=== PATIENT | female | born 1965 | race Caucasian/White ===

== ENCOUNTER → 2016-10-17 | Outpatient (CLI) | payer BC ==
--- NOTE | 2016-10-17 15:08 | DX ---
DEXA Bone Mineral Densitometry Clinical Indications: Perimenopausal, baseline, screening for osteoporosis Comparison: Technique: Bone Mineral Densitometry (BMD) by Dual Energy X-Ray Absorptiometry (DEXA) was performed utilizing the [employer] scanner. The lumbar spine was evaluated in the AP projection. The bilat eral hips and forearm were evaluated in the AP projection. Vertebral fracture assessment was also pe rformed. AP Lumbar Spine: The L1, L2, L3 and L4 vertebral bodies were evaluated. BMD: 1.113 gm/cm2 T-score: -0.7 SD Z-score: 0.1 SD AP Left Hip: Total BMD: 0.866 gm/cm2 T-score: -1.1 SD Z-score: -0.5 SD AP Right Hip: Total BMD: 0.849 gm/cm2 T-score: -1.3 SD Z-score: -0.6 SD AP Left Forearm, 10/04: BMD: 0.767 gm/cm2 T-score: -1.2 SD Z-score: -1.1 SD Vertebral Fracture Assessment: No significant fracture deformity. No prevertebral aortic calcificati on, significant marginal bone spurring, facet arthrosis, or intrinsic vertebral body sclerosis that would effect the accuracy of the lumbar spine BMD measurement. Conclusion: Considering the lowest measured site, the patient has low bone density. The ten year FRAX risk for any major osteoporotic fracture is 4.1% and for a hip fracture is 0.3%. Any bone loss in this patient is probably related to aging or estrogen deficiency. To prevent osteoporosis and to promote the patient's bone density, the following recommendations shou ld be considered: 1. Pursue a regular regimen of weightbearing and muscle strengthening exercises in order to reduce t he risk of falls and fractures (as tolerated by the patient's general medical condition). 2. Ensure that daily dietary calcium uptake is maximized. 3. Consider checking the serum vitamin D level. Ensure that intake of vitamin D is 600 IU per day (fo r all ages through 70) 4. Consider follow-up DEXA scan at the time of menopause to assess the rate of bone loss in this pat ient.
== END ==
LOC: BRMIMAGING 13:23
PROVIDERS: ATTEND Family Medicine
DX: Z13.820 Encounter for screening for osteoporosis (principal); M85.80 Other specified disorders of bone density and structure, unspecified site; N95.1 Menopausal and female climacteric states

== ENCOUNTER → 2017-07-28 | Outpatient (CLI) | payer BC | LOC: FIMAGING 19:59 | PROVIDERS: ATTEND Family Medicine | DX: R22.2 Localized swelling, mass and lump, trunk (principal); M51.34 Other intervertebral disc degeneration, thoracic region ==

== ENCOUNTER → 2018-03-19 | Outpatient (CLI) | payer BC | LOC: FIMAGING 15:16 | PROVIDERS: ATTEND Family Medicine | DX: Z12.31 Encounter for screening mammogram for malignant neoplasm of breast (principal) ==

== ENCOUNTER → 2018-03-30 | Outpatient (CLI) | payer BC | LOC: CIMAGING 10:25 | PROVIDERS: ATTEND Family Medicine | DX: N83.201 Unspecified ovarian cyst, right side (principal); N83.202 Unspecified ovarian cyst, left side | CPT/HCPCS: 76770-PO ==

== ENCOUNTER 2018-05-20 | Emergency (ER) | payer BC | END 2018-05-20 17:54 | disposition home or self-care (01) ==

== ENCOUNTER → 2018-11-19 | Outpatient (CLI) | payer BC | LOC: CIMAGING 12:34 | PROVIDERS: ATTEND Family Medicine | DX: N83.202 Unspecified ovarian cyst, left side (principal) | CPT/HCPCS: 76856-PO ==

== ENCOUNTER 2019-02-18 02:12 | Emergency (ER) | payer BC ==
--- NOTE | 2019-02-18 02:30 | EDPHY ---
H & P Stated Complaint: LEFT SIDE NECK PAIN Time Seen by Provider: 02/18/19 02:30 HPI/ROS: Chief Complaint:severe neck pain HPI: woke up with sudden severe neck pain, comes and goes but constant, worse with moving neck. Denies w/n/t nor vision change or speech or swallowing problems. + headache-not severe, no dizziness or confusion PMH: HTN Social History: Runs and yoga and Pilates no Tobacco, no Drugs, nor Alcohol: Family History: ROS: Neuro: Mild headache no w/n/t Constitutional: No Fever, No dizziness ENT: No runny nose, No sore throat Cardiac: No Chest Pain Pulmonary: No Shortness of Breath GI: No abdominal Pain Skin: No rash Heme: No easy bruising : No urinary problems Eyes: No vision problems Musculoskeletal: + neck pain, No back pain Complete Review of systems negative except as noted above Physical Exam: General: Alert in severe distress from pain when she rotates her head Eyes: no icterus or pallor. PERRL ENT: Mouth: Mucus membranes moist Neck: tense but supple, no lymph nodes, no vertebral tenderness, no meningeal signs, no bruits, tenderness of left lateral musculature Lungs CTA bilaterally, no respiratory distress Cardiac: Normal pulses, normal rate, normal rhythm, normal heart sounds GI: Abd Soft, non tender, no distention Back: Normal inspection, nml ROM, No CVAT, no vertebral tenderness Extremities: No swelling, nml ROM Skin: Warm, pink and dry, no rash, normal turgor Neuro: A&Ox3, MAEE, Nml Speech, CN 2-12 intact, normal motor and sensory exam X all motor and sensory groups, nl FTN, HTS, no field cut, nml mental status and capacity Reevaluations, MDM, and data interpretation Data Interpretation ED Course Initial Eval: Pt greeted and advised about plan for care. We discussed that I' d like to order CTA to r/o dissection to prevent a stroke. Patient asked about radiation. We discussed the 1:5000 reported chance of significant cancers and she decided she didn't think the risk of cancer was worth the benefit of finding a dissection and preventing a stroke. She was able to express her understanding of missed dissection which I explained in lay terms-problems with an artery that would cause stroke. Reevaluation Patient feels somewhat better would like to rest a bit to see if she needs more meds or is safe for dc Reevaluation 2. Patient feels much better, able to ROM her neck. Discussed neuro deficits and return reasons and she understands and is stable for dc. Medical Decision Making Differential Diagnosis and MDM: 53 yo female with acute severe atraumatic left lateral neck pain with spasm. Patient with concomitant risk factor of HTN puts her at risk for life threatening differential diagnosis including vertebral artery dissection, carotid artery dissection as well as potentially disabling cervical radiculopathy, discitis, epidural infection or bleed. At this point, she refuses imaging. She has a normal mental status and decision making capacity, she has a normal neuro exam and has reproducible tenderness of her left trapezius without vertebral tenderness, redness or swelling. She is stable for dc. - Personal History LMP (Females 10-55): Pre Menstrual Current Tetanus/Diphtheria Vaccine: Yes Current Tetanus Diphtheria and Acellular Pertussis (TDAP): Yes - Medical/Surgical History Hx Asthma: No Hx Chronic Respiratory Disease: No Hx Diabetes: No Hx Cardiac Disease: No Hx Renal Disease: No Hx Cirrhosis: No Hx Alcoholism: No Other PMH: HTN - Social History Smoking Status: Never smoked Constitutional: Initial Vital Signs Temperature (C) 36.6 C 02/18/19 02:18 Heart Rate 72 02/18/19 02:18 Respiratory Rate 18 02/18/19 02:18 Blood Pressure 152/89 H 02/18/19 02:18 O2 Sat (%) 96 02/18/19 02:18 O2 Delivery Mode Room Air Allergies/Adverse Reactions: No Known Allergies Allergy (Unverified 02/18/19 02:20) Home Medications: Medication Instructions Recorded Diazepam [Valium 5 MG (*)] 5 mg PO TID PRN #15 tab 02/18/19 Lidocaine [Lidocaine Pain Relief] 1 each TP BID #7 adh..patch 02/18/19 amLODIPine BESYLATE [Amlodipine 5 mg PO 02/18/19 Besylate] Medical Decision Making - Data Points Medications Given: Discontinued Medications Dexamethasone (Decadron Injection) 10 mg IVP EDNOW ONE Stop: 02/18/19 02:45 Last Admin: 02/18/19 02:59 Dose: 10 mg Diazepam (Valium) 5 mg IVP EDNOW ONE Stop: 02/18/19 02:45 Last Admin: 02/18/19 02:59 Dose: 5 mg Ketorolac Tromethamine (Toradol) 15 mg IVP EDNOW ONE Stop: 02/18/19 02:45 Last Admin: 02/18/19 02:59 Dose: 15 mg Departure - Departure Disposition: Home, Routine, Self-Care Clinical Impression: Acute torticollis, Hypertension Condition: Good Instructions: Acute Neck Pain (ED) Additional Instructions: Return immediately if weakness, numbness, speech or swallowing difficulty, confusion, vision difficulty or worsening pain, or bowel or bladder incontinence or inability to urinate. Also take ibuprofen 400 mg every 6 hr as needed for pain and Tylenol as needed for pain. You may benefit from massage therapy to urine neck for the muscle spasm. Referrals: Haley Dhaliwal MD [Primary Care Provider] - As per Instructions Prescriptions: Diazepam [Valium 5 MG (*)] 5 mg PO TID PRN #15 tab PRN Reason: Spasms Lidocaine [Lidocaine Pain Relief] 1 each TP BID #7 adh..patch
[2019-02-18] MEDS ORDERED: DIAZEPAM 10 MG/2 ML SYR IVP ONE (02:44)
[2019-02-18] MEDS ORDERED: KETOROLAC 15 MG/1 ML SDV IVP ONE (02:44)
[2019-02-18] MEDS ORDERED: DEXAMETHASONE 10 MG/ML VIAL IVP ONE (02:44)
[2019-02-18 05:39] VITALS: BP 144/96
== END 2019-02-18 05:38 | disposition home or self-care (01) ==
DX: M54.2 Cervicalgia (principal); I10 Essential (primary) hypertension
CPT/HCPCS: 96374; J1100; J1885; J3360

== ENCOUNTER → 2019-03-20 | Outpatient (CLI) | payer BC | LOC: FIMAGING 15:16 ==